=== PATIENT | male | born 1980 | race Caucasian/White ===

== ENCOUNTER 2020-11-15 15:32 | Emergency (ER) | payer OTHER ==
[2020-11-15] MEDS ORDERED: TESSALON PERLE100 MG PO (19:16)
== END 2020-11-15 19:30 | disposition home or self-care (01) ==
LOC: ER1 15:32
DX: U07.1 COVID-19 (principal); J45.909 Unspecified asthma, uncomplicated; F17.210 Nicotine dependence, cigarettes, uncomplicated
CPT/HCPCS: 71045; 99283; U0002